=== PATIENT | female | born 1945 | race Caucasian/White ===

== ENCOUNTER 2018-07-27 20:30 | Emergency (ER) | payer OTHER ==
[2018-07-27 21:18] VITALS: BP 153/64; PULSE 79; TEMP 98.2; BMI 22.3
[2018-07-27] MEDS ORDERED: TETRACAINE 0.5% OPHTH SOLN 2 ML BOTTLE ONE (21:33)
[2018-07-27] MEDS ORDERED: CYCLOBENZAPRINE HCL 10 MG TABLET (FP) ONE (21:34)
[2018-07-27] MEDS ORDERED: FLUORESCEIN NA 1 EA STRIP ONE (21:35)
[2018-07-27] MEDS ORDERED: CIPROFLOXACIN HCL 0.3% OPHTH 2.5ML BOTTLE ONE (21:47)
--- NOTE | 2018-07-28 03:02 | PDOC ---
Documentation entered by Lei Head SCRIBE, acting as scribe for Marcelle Walker MD. Marcelle Walker MD: This documentation has been prepared by the Adilene mullen Matthew, SCRIBE, under my direction and personally reviewed by me in its entirety. I confirm that the documentation accurately reflects all work, treatment, procedures, and medical decision making performed by me. History of Present Illness - General Chief Complaint: Eye Problem Stated Complaint: LEFT EYE SCRATCH Time Seen by Provider: 07/27/18 21:11 History Source: Patient Exam Limitations: No Limitations - History of Present Illness Initial Comments: 07/27/18 21:53 Patient is a 73 year old female with a significant past medical history of HTN, who presents to the ED with complaints of left eye pain that began just prior to ED arrival. Patient reports eating crab for dinner when she cracked a shell, causing a shell fragment to break off and hit her left eye causing immediate pain. She reports washing her eye with minimal relief, prompting her to come into the ED for further evaluation. Denies chest pain, sob. Denies nausea, vomiting. Denies dysuria, hematuria. Denies constipation, diarrhea. Denies contact with sick individuals, out of state travelling. Denies any other symptoms. Allergies: NKDA Social history: social alcohol use. No illicit drugs. No smoking. Surgical history: None PMD: Dr. Baltazar Past History - Past Medical History COPD: No HTN: Yes Hypercholesterolemia: Yes - Suicide/Smoking/Psychosocial Hx Smoking History: Never smoked Hx Alcohol Use: Yes (OCCASIONAL) Drug/Substance Use Hx: No Review of Systems - Review of Systems Able to Perform ROS?: Yes Comments:: 07/27/18 21:53 GENERAL/CONSTITUTIONAL: No fever or chills. No weakness. HEAD, EYES, EARS, NOSE AND THROAT: No change in vision. No ear pain or discharge. No sore throat. CARDIOVASCULAR: No chest pain or shortness of breath. RESPIRATORY: No cough, wheezing, or hemoptysis. GASTROINTESTINAL: No nausea, vomiting, diarrhea or constipation. GENITOURINARY: No dysuria, frequency, or change in urination. MUSCULOSKELETAL: No joint or muscle swelling or pain. No neck or back pain. SKIN: No rash NEUROLOGIC: No headache, vertigo, loss of consciousness, or change in strength/ sensation. ENDOCRINE: No increased thirst. No abnormal weight change. HEMATOLOGIC/LYMPHATIC: No anemia, easy bleeding, or history of blood clots. ALLERGIC/IMMUNOLOGIC: No hives or skin allergy. *Physical Exam - Vital Signs Last Vital Signs Temp Pulse Resp BP Pulse Ox 98.2 F 79 16 153/64 96 07/27/18 21:00 07/27/18 21:00 07/27/18 21:00 07/27/18 21:00 07/27/18 21:00 - Physical Exam Comments: 07/27/18 21:53 GENERAL: Awake, alert, and fully oriented, in no acute distress HEAD: No signs of trauma EYES: PERRLA, EOMI, sclera anicteric, conjunctiva clear ENT: Auricles normal inspection, hearing grossly normal, nares patent, oropharynx clear without exudates. Moist mucosa NECK: Normal ROM, supple, no lymphadenopathy, JVD, or masses LUNGS: Breath sounds equal, clear to auscultation bilaterally. No wheezes, and no crackles HEART: Regular rate and rhythm, normal S1 and S2, no murmurs, rubs or gallops ABDOMEN: Soft, nontender, normoactive bowel sounds. No guarding, no rebound. No masses EXTREMITIES: Normal range of motion, no edema. No clubbing or cyanosis. No cords, erythema, or tenderness NEUROLOGICAL: Cranial nerves II through XII grossly intact. Normal speech, normal gait SKIN: Warm, Dry, normal turgor, no rashes or lesions noted. *DC/Admit/Observation/Transfer Diagnosis at time of Disposition: Left corneal abrasion Qualifiers: Encounter type: initial encounter Qualified Code(s): S05.02XA - Injury of conjunctiva and corneal abrasion without foreign body, left eye, initial encounter - Discharge Dispostion Condition at time of disposition: Good - Referrals Referrals: Bruno Baltazar v [Primary Care Provider] - Miky Lopez MD [Staff Physician] - Call tomorrow - Patient Instructions Printed Discharge Instructions: Corneal Abrasion Additional Instructions: Cipro eyedrops: 2 drops in left eye every 4 hours while awake until seen by your well surveying engineer Use extra pillow to elevate head while sleeping tonight Tylenol/Motrin/Aleve as needed for pain Call your well surveying engineer (Dr. Lopez) tomorrow morning and arrange follow-up within the next few days Return to ER if you have worsening pain or decreased vision - Post Discharge Activity - Attestations Scribe Attestion: 07/27/18 21:44 Documentation prepared by Lei Head, acting as medical csr for Marcelle Walker MD.
== END 2018-07-27 21:56 | disposition home or self-care (01) ==
LOC: FER 20:30
DX: S05.02XA Injury of conjunctiva and corneal abrasion without foreign body, left eye, initial encounter (principal); W20.8XXA Other cause of strike by thrown, projected or falling object, initial encounter; Y93.89 Activity, other specified; Y92.511 Restaurant or cafe as the place of occurrence of the external cause; I10 Essential (primary) hypertension
CPT/HCPCS: 99281-25